=== PATIENT | male | born 1935 | race Caucasian/White ===

== ENCOUNTER 2022-02-24 13:35 | Emergency (ER) | payer MEDICARE, BC, SELFPAY ==
[2022-02-24 13:40] VITALS: BP 187/87; PULSE 74; RESP 24; RESP 30; TEMP 37.1; O2SAT 93; O2SAT 97
--- NOTE | 2022-02-24 13:56 | ED_ITS ---
HPI - General Adult General Time Seen by Provider: 13:56 Date Seen: 02/24/22 Chief complaint: Shortness of Breath/Dyspnea Stated complaint: Struggling to breath Time Seen by Provider: 02/24/22 13:49 Source: patient and RN notes reviewed Mode of arrival: wheelchair Limitations: no limitations History of Present Illness HPI narrative: Patient is an 86-year-old male with known emphysema coming in with complaint of increasing shortness of breath. He baseline is on budesonide and formoterol nebs. He is also on prednisone 10 mg daily as well as a Zithromax 250 mg daily. 2-3 days ago he developed some nasal drainage/postnasal drainage in 30 which is getting a bit of a cold. This seemed to have precipitated his breathing. He just feeling more short of breath. Some cough. No pain. No fevers. Not aware of any ill contacts. He brings up quite quickly that he is depressed, tells me that he lost his to metastatic breast cancer a little over a month ago and then he just lost their dog a few weeks ago. He has been given Ativan to help with sleeping. Baseline he is not on oxygen at home during the daytime but does use it at night. No current tobacco use. Related Data Home Medications Medication Instructions Recorded Confirmed atorvastatin 40 mg tablet 40 mg PO HS 02/24/22 02/24/22 azithromycin 250 mg tablet 250 mg PO DAILY 02/24/22 02/24/22 calcium carbonate 600 mg-vitamin 1 cap PO DAILY 02/24/22 02/24/22 D3 5 mcg (200 unit) capsule (Calcium 600 + D(3)) diltiazem HCl 180 mg 180 mg PO DAILY 02/24/22 02/24/22 capsule,extended release 24 hr (Cardizem CD) formoterol fumarate 20 mcg/2 mL 2 ml inhalation BID 02/24/22 02/24/22 solution for nebulization guaifenesin 1,200 mg tablet, 1,200 mg PO BID 02/24/22 02/24/22 extended release 12 hr (Mucinex) hydralazine 25 mg tablet 25 mg PO BID 02/24/22 02/24/22 isosorbide mononitrate 30 mg 30 mg PO DAILY 02/24/22 02/24/22 tablet,extended release 24 hr lisinopril 2.5 mg tablet 2.5 mg PO DAILY 02/24/22 02/24/22 potassium chloride 10 mEq 10 meq PO DAILY 02/24/22 02/24/22 tablet,extended release (K-Tab) prednisone 10 mg tablet 10 mg PO DAILY 02/24/22 02/24/22 tiotropium bromide 2.5 2 inh inhalation DAILY 02/24/22 02/24/22 mcg/actuation mist for inhalation (Spiriva Respimat) torsemide 10 mg tablet 10 mg PO DAILY 02/24/22 02/24/22 Previous Rx's Medication Instructions Recorded doxycycline monohydrate 100 mg 100 mg PO BID #14 caps 02/24/22 capsule ipratropium 0.5 mg-albuterol 3 mg 3 ml inhalation Q6H PRN #90 mL 02/24/22 (2.5 mg base)/3 mL nebulization soln prednisone 20 mg tablet 20 mg PO BID #10 tabs 02/24/22 Allergies Allergy/AdvReac Type Severity Reaction Status Date / Time No Known Drug Allergies Allergy Verified 02/24/22 13:44 Review of Systems Status of ROS: Reports: 10 or more systems reviewed and unremarkable except as noted in History and below PFSH PFS Social History Smoking Status: Former smoker Do you use any of these nicotine containing products: None Second hand tobacco smoke exposure: No How often do you have a drink containing alcohol: never How often do you have six or more drinks on one occasion: Never AUDIT-C Alcohol total score: 0 Non-prescribed substance use: denies use Exam Const: Vital Signs, click to edit/add: Vital Signs - 24 hr 02/24/22 13:40 02/24/22 13:40 02/24/22 15:00 Temperature 98.8 F Pulse Rate [Pulse Oximeter] 74 73 Respiratory Rate 30 H 24 19 Blood Pressure [Le ft Upper Arm] 187/87 H 187/87 H 166/74 H Pulse Oximetry 93 97 91 Oxygen Delivery Me thod Room Air Nasal Cannula Room Air Oxygen Flow Rate 2 02/24/22 14:00 02/24/22 14:30 02/24/22 15:30 Temperature Pulse Rate [Pulse Oximeter] 70 73 75 Respiratory Rate 18 19 Blood Pressure [Le ft Upper Arm] 173/82 H 163/80 H 172/78 H Pulse Oximetry 99 95 92 Oxygen Delivery Me thod Nasal Cannula Room Air Room Air Oxygen Flow Rate 2 Documenting provider has reviewed patient's vital signs: yes Common normals: average body habitus, oriented x3, no limitations and alert General appearance: cooperative, in distress mild and frail appearing HENMT: Common normals: normocephalic, head/scalp atraumatic, hearing grossly normal bilaterally, external ears normal, external nose normal, nasal mucous membranes and turbinates normal, moist oral mucous membranes and oropharynx normal Head and scalp: normocephalic and atraumatic Nose: external nose normal and nasal mucous membranes and turbinates normal External ear: external ears normal Eye: Common normals: PERRL, EOMs intact bilaterally, conjunctivae normal and no scleral icterus Conjunctiva: conjunctiva(e) normal Pupil: PERRL Neck & C-Spine: Common normals: full ROM, no lymphadenopathy, supple, no meningeal signs and thyroid normal Thyroid: thyroid normal Resp: Effort & inspection: tachypneic, pursed lip breathing, audible wheezes (On his right, minimal breath sounds heard on the left) and prolonged expiratory phase Auscultation: wheezes and diminished lung sounds Other: Can speak in short phrases before needing to pause Cardio: Common normals: regular rate, regular rhythm, S1 normal heart sound, S2 normal heart sound, no gallops, no clicks and no murmurs Rate: regular rate Rhythm: regular rhythm Heart sounds: S1 normal and S2 normal GI: Common normals: Normal to inspection, nondistended, normoactive bowel sounds present, soft to palpation, non-tender, no hepatosplenomegaly and no masses Palpation: soft and no hepatosplenomegaly Extremity: Common normals: normal to inspection, full ROM, normal capillary refill, no joint enlargement, no clubbing, cyanosis or edema, no calf tenderness and no pedal edema Neuro: Common normals: oriented x3 Sensorium/orientation: alert Meningeal signs: no meningeal signs Psych: Other: Becomes tearful at times talking about his in his dog. Course Course Hospital Course: Will have him on pulse oximetry, cardiac monitoring. We will do appropriate l abs including cardiac labs. Will obtain portable chest x-ray. Will going to give him a DuoNeb and I will reassess after that see if it has helped his breathing at all. At this time would appear that this is a COPD/emphysema exacerbation. Need to illicit if there is any infectious etiology including COVID. Will rule out underlying cardiac contributing factors or altered and cardiac etiologies. However, this most likely represents emphysema/COPD exacerbation. I am going to give him a dose of Solu-Medrol IV as well. Reevaluation(s) Reevaluation #1: Reviewed with patient that his chest x-ray is certainly looking stable, no evidence of any concerning acute pneumonia. He is able to relate to me that he actually had prednisone taper that was initiated about 2 weeks ago. He is on 10 mg of that from the prednisone. I have also come to understand that he was taking a Zithromax in daily that last week but maintenance lara he is on it every other day. He noticed his sputum is starting to color more and coughing up more sputum. He has no rescue inhaler at home. He uses the formoterol and the budesonide twice a day. He also uses Spiriva in the morning. We have discussed initiating some DuoNebs that he can use every 6 hours if needed. Will also place him on a course of doxycycline. We did discuss talking to the hospitalists about coming in for observation but he does not want to do that. He is preferring to go home. He does have a followup with the primary provider next week. He does need to keep that to discuss his COPD as well as his grief. Time: 15:58 Vital Signs Vital signs: Initial Vital Signs Temperature 98.8 F 02/24/22 13:40 Temperature Source Temporal Artery Scan 02/24/22 13:40 Pulse Rate 74 02/24/22 13:40 Respiratory Rate 30 H 02/24/22 13:40 Blood Pressure 187/87 H 02/24/22 13:40 Blood Pressure Mean 120 02/24/22 13:40 Blood Pressure Position Sitting 02/24/22 13:40 Pulse Oximetry 93 02/24/22 13:40 Oxygen Delivery Method 02/24/22 13:40 Oxygen Flow Rate 2 02/24/22 13:40 Vital Signs Temperature 98.8 F 02/24/22 13:40 Pulse Rate 74 02/24/22 13:40 Respiratory Rate 30 H 02/24/22 13:40 Blood Pressure 187/87 H 02/24/22 13:40 Pulse Oximetry 93 02/24/22 13:40 Oxygen Delivery Method 02/24/22 13:40 Oxygen Flow Rate 2 02/24/22 13:40 Temperature 98.8 F 02/24/22 13:40 Pulse Rate 75 02/24/22 15:30 Respiratory Rate 19 02/24/22 15:30 Blood Pressure 172/78 H 02/24/22 15:30 Pulse Oximetry 92 02/24/22 15:30 Oxygen Delivery Method 02/24/22 15:30 Oxygen Flow Rate 2 02/24/22 14:00 Medical Decision Making Lab Data Lab results reviewed: Yes I reviewed the patient's lab results Labs: Lab Results 02/24/22 02/24/22 02/24/22 Range/Units 14:02 14:17 14:17 WBC 13.33 H (4.50-11.00) K/uL RBC 4.77 (4.30-5.90) m/uL Hgb 14.5 (13.5-17.5) gm/dL Hct 44.9 (37.0-53.0) % MCV 94 (80-100) fL MCH 30 (26-34) pg MCHC 32 (32-36) gm/dL RDW Coeff of Eliot 13.4 (11.5-15.5) % Plt Count 186 (140-440) K/uL Neut % (Auto) 87.4 H (42.0-72.0) % Lymph % (Auto) 6.9 L (20-44) % Roane % (Auto) 4.6 (0.0-11.0) % Eos % (Auto) 0.2 (0.0-7.0) % Baso % (Auto) 0.1 (0.0-3.0) % Neut # (Auto) 11.70 H (1.7-7.0) K/uL Lymph # (Auto) 0.90 (0.90-2.90) K/uL Roane # (Auto) 0.60 (0.00-0.90) K/UL Eos # (Auto) 0.00 (0.00-0.50) K/uL Baso # (Auto) 0.00 (0.00-0.30) K/uL Abs Immat Gran (auto) 0.11 (0.00-0.30) K/uL VBG pH (7.32-7.43) VBG pCO2 (40-50) mmHG VBG pO2 (25-47) mmHG VBG HCO3 (21-28) mmol/L Sodium 137 (135-149) mmol/L Potassium 4.7 (3.6-5.1) mmol/L Chloride 101 (96-114) mmol/L Carbon Dioxide 29 (20-32) mmol/L BUN 28 (7-30) mg/dL Creatinine 1.5 (0.5-1.5) mg/dL Estimated GFR 45 ml/min Glucose 105 (60-115) mg/dL Lactate (0.5-1.9) mmol/L Calcium 9.2 (8.4-10.6) mg/dL Total Bilirubin 0.9 (0.1-1.5) mg/dL AST 18 (12-35) U/L ALT 12 (4-50) U/L Alkaline Phosphatase 87 (40-150) U/L Troponin I < 0.01 L (0.01-0.04) ng/mL C-Reactive Protein 1.2 H (0.5-1.0) mg/dL NT-Pro-B Natriuret Pep 264 (0-450) PG/mL Total Protein 6.3 (6.0-8.3) g/dL Albumin 3.9 (3.3-5.0) g/dL SARS-CoV-2 (PCR) Negative SARS-CoV-2 (Negative) 02/24/22 Range/Units 14:17 WBC (4.50-11.00) K/uL RBC (4.30-5.90) m/uL Hgb (13.5-17.5) gm/dL Hct (37.0-53.0) % MCV (80-100) fL MCH (26-34) pg MCHC (32-36) gm/dL RDW Coeff of Eliot (11.5-15.5) % Plt Count (140-440) K/uL Neut % (Auto) (42.0-72.0) % Lymph % (Auto) (20-44) % Roane % (Auto) (0.0-11.0) % Eos % (Auto) (0.0-7.0) % Baso % (Auto) (0.0-3.0) % Neut # (Auto) (1.7-7.0) K/uL Lymph # (Auto) (0.90-2.90) K/uL Roane # (Auto) (0.00-0.90) K/UL Eos # (Auto) (0.00-0.50) K/uL Baso # (Auto) (0.00-0.30) K/uL Abs Immat Gran (auto) (0.00-0.30) K/uL VBG pH 7.401 (7.32-7.43) VBG pCO2 49 (40-50) mmHG VBG pO2 48.1 H (25-47) mmHG VBG HCO3 30 H (21-28) mmol/L Sodium (135-149) mmol/L Potassium (3.6-5.1) mmol/L Chloride (96-114) mmol/L Carbon Dioxide (20-32) mmol/L BUN (7-30) mg/dL Creatinine (0.5-1.5) mg/dL Estimated GFR ml/min Glucose (60-115) mg/dL Lactate 1.4 (0.5-1.9) mmol/L Calcium (8.4-10.6) mg/dL Total Bilirubin (0.1-1.5) mg/dL AST (12-35) U/L ALT (4-50) U/L Alkaline Phosphatase (40-150) U/L Troponin I (0.01-0.04) ng/mL C-Reactive Protein (0.5-1.0) mg/dL NT-Pro-B Natriuret Pep (0-450) PG/mL Total Protein (6.0-8.3) g/dL Albumin (3.3-5.0) g/dL SARS-CoV-2 (PCR) (Negative) Imaging Data Chest x-ray: Attestation: I have reviewed the pertinent imaging results. Radiologist's impression: Patient: DANII GUEVARA JR Facility:?[facility] Patient ID:?[id number] Site Patient ID:?[id number] Site :?[id number] Study:?XRay Chest PORTABLE-02/24/2022 2:24:11 PM Ordering Physician:Joselyn Hurst Final Report: Indication: Shortness of breath Comparison: Two-view chest November 15, 2013 Technique: Single AP view chest Findings: There is hyperinflation and chronic interstitial change. There is mild interstitial prominence with minimal pulmonary vascular congestion and basilar atelectasis versus scar. There is no pneumothorax. The cardiomediastinal silhouette is within normal limits. The bony thorax is grossly intact. Impression: Hyperinflation and chronic interstitial changes with minimal basilar atelectasis and parenchymal scar. Dictated by Chaka Umanzor MD @ 02/24/2022 2:36:18 PM (Electronic Signature) ECG Data Attestation: I personally reviewed and interpreted this ECG as follows: (Sinus rhythm, 71 beats per minute, no acute pathology.) Prior ECG tracings: not available for review Critical Care Time Critical Care Time Critical Care Time: No Discharge Plan Discharge Clinical Impression: Grief reaction, Acute exacerbation of chronic obstructive pulmonary disease Patient Disposition: Home, Self-Care Condition: Stable Instructions: Grief and Loss (ED), COPD (Chronic Obstructive Pulmonary Disease) (ED) Additional Instructions: Start doxycycline 4 year COPD exacerbation. Hold your is at her mycin while you are on this. Once done with the doxycycline you can resume the Zithromax sin every other day that you about on. And putting on prednisone 20 mg twice a day, need to have further taper done by your primary care provider at followup next week. I have also written for DuoNebs to be used up to every 6 hours as needed, this is a medicine that can be used as needed. You should stay on the formoterol, Spiriva, budesonide. If you are continuing to worsen, develops fever, have increased difficulty breathing, do need to seek re-evaluation. Activity Level: Activity as Tolerated Prescriptions: New prednisone 20 mg tablet 20 mg PO BID Qty: 10 0RF doxycycline monohydrate 100 mg capsule 100 mg PO BID Qty: 14 0RF ipratropium-albuterol 0.5 mg-3 mg(2.5 mg base)/3 mL solution for nebulization 3 ml inhalation Q6H PRNQty: 90 0RF No Action diltiazem HCl [Cardizem CD] 180 mg capsule,extended release 24hr 180 mg PO DAILY isosorbide mononitrate 30 mg tablet extended release 24 hr 30 mg PO DAILY lisinopril 2.5 mg tablet 2.5 mg PO DAILY potassium chloride [K-Tab] 10 mEq tablet extended release 10 meq PO DAILY torsemide 10 mg tablet 10 mg PO DAILY azithromycin 250 mg tablet 250 mg PO DAILY Rx Instructions: start on day 2 of therapy atorvastatin 40 mg tablet 40 mg PO HS Mucinex 1,200 mg tablet extended release 12hr 1,200 mg PO BID Calcium 600 + D(3) 600 mg-5 mcg (200 unit) capsule 1 cap PO DAILY hydralazine 25 mg tablet 25 mg PO BID Spiriva Respimat 2.5 mcg/actuation mist 2 inh inhalation DAILY prednisone 10 mg tablet 10 mg PO DAILY formoterol fumarate 20 mcg/2 mL solution for nebulization 2 ml inhalation BID Follow Up/Referrals: Juan Argueta MD [Primary Care Provider] - Stand Alone [facility]
[2022-02-24 14:00] VITALS: BP 173/82; PULSE 70; O2SAT 99
[2022-02-24] MEDS: IPRAT-ALBUT 0.5-2.5 MG/3 ML NEB 1 NEB IH (14:00)
--- NOTE | 2022-02-24 14:00 | CRLHL7_ITS ---
For Patients: As a result of the Century Cures Act, medical imaging exams and procedure reports are released immediately into your electronic medical record. You may view this report before your referring provider. If you have questions, please contact your health care provider. Indication: Shortness of breath Comparison: Two-view chest November 15, 2013 Technique: Single AP view chest Findings: There is hyperinflation and chronic interstitial change. There is mild interstitial prominence with minimal pulmonary vascular congestion and basilar atelectasis versus scar. There is no pneumothorax. The cardiomediastinal silhouette is within normal limits. The bony thorax is grossly intact. Impression: Hyperinflation and chronic interstitial changes with minimal basilar atelectasis and parenchymal scar. Dictated by Chaka Umanzor MD @ 02/24/2022 2:36:18 PM (Electronically Signed)
--- NOTE | 2022-02-24 14:10 | ED.NURSE ---
Pt weaned off O2 after neb. Pt satting in mid-90's% on RA. notified.
[2022-02-24 14:30] VITALS: BP 163/80; PULSE 73; RESP 18; O2SAT 95
[2022-02-24] MEDS: METHYLPREDNISOLONE SOD SUCC 62.5 MG/ML (125) 125 MG IVP (14:33)
[2022-02-24 14:37] LABS: HCO3 VBG 30 mmol/L (21-28); Lactate* 1.4 mmol/L (0.5-1.9); PCO2 VBG 49 mmHG (40-50); PO2 VBG 48.1 mmHG (25-47); pH VBG 7.401 (7.32-7.43)
[2022-02-24 14:38] LABS: Hematocrit 44.9 % (37.0-53.0); Hemoglobin* 14.5 gm/dL (13.5-17.5); Lymphocytes Percent Auto 6.9 % (20-44); Mean Corpuscular HGB Conc 32 gm/dL (32-36); Mean Corpuscular Hemoglobin 30 pg (26-34); Mean Corpuscular Volume 94 fL (80-100); Neutrophils Percent Auto 87.4 % (42.0-72.0); Platelet Count* 186 K/uL (140-440); RDW Coefficient of Variation % 13.4 % (11.5-15.5); Red Blood Count 4.77 m/uL (4.30-5.90); White Blood Count* 13.33 K/uL (4.50-11.00)
[2022-02-24 14:39] LABS: Basophils Percent Auto 0.1 % (0.0-3.0); Eosinophils Percent Auto 0.2 % (0.0-7.0); Immature Granulocytes Abs Auto 0.11 K/uL (0.00-0.30); Monocytes Percent Auto 4.6 % (0.0-11.0)
[2022-02-24 14:48] LABS: Slide Review Reflex No
[2022-02-24 14:54] LABS: Chloride* 101 mmol/L (96-114)
[2022-02-24 14:55] LABS: Albumin* 3.9 g/dL (3.3-5.0); Potassium* 4.7 mmol/L (3.6-5.1); Sodium* 137 mmol/L (135-149)
[2022-02-24 14:57] LABS: Creatinine* 1.5 mg/dL (0.5-1.5); Estimated Glomerular Filt Rate 45 ml/min
[2022-02-24 14:58] LABS: Alanine Aminotransferase* 12 U/L (4-50); Alkaline Phosphatase* 87 U/L (40-150); Aspartate Amino Transferase* 18 U/L (12-35); Bilirubin Total* 0.9 mg/dL (0.1-1.5); Blood Urea Nitrogen* 28 mg/dL (7-30); Carbon Dioxide* 29 mmol/L (20-32); Total Protein* 6.3 g/dL (6.0-8.3)
[2022-02-24 14:59] LABS: Calcium* 9.2 mg/dL (8.4-10.6); Glucose* 105 mg/dL (60-115)
[2022-02-24 15:00] VITALS: BP 166/74; PULSE 73; RESP 19; O2SAT 91
[2022-02-24 15:01] LABS: C Reactive Protein* 1.2 mg/dL (0.5-1.0)
[2022-02-24 15:07] LABS: NT Pro B Type NatriureticPept* 264 PG/mL (0-450)
[2022-02-24 15:09] LABS: SARS PCR* Negative SARS-CoV-2 (Negative)
[2022-02-24 15:15] LABS: Troponin I* < 0.01 ng/mL (0.01-0.04)
[2022-02-24 15:30] VITALS: BP 172/78; PULSE 75; RESP 19; O2SAT 92
[2022-02-24 16:00] VITALS: BP 176/80; PULSE 72; RESP 20; O2SAT 94
== END 2022-02-24 16:29 | disposition home or self-care (01) ==
PROVIDERS: Emergency Provider Family Medicine; PCP Family Medicine
DX: J44.1 Chronic obstructive pulmonary disease with (acute) exacerbation (principal); F43.20 Adjustment disorder, unspecified
CPT/HCPCS: 36415; 71045; 80053; 82803; 83605; 83880; 84484; 85025; 86140; 87635; 93005; 94640; 96374; 99284; 99285; J2930

== ENCOUNTER 2022-03-01 14:55 | Outpatient (CLI) | payer MEDICARE, BC, SELFPAY | END 2022-03-01 14:56 | disposition home or self-care (01) | LOC: AMB 03-06 14:09 | PROVIDERS: PCP Family Medicine; Visit Provider Emergency Medicine Emergency Medical Services | DX: T42.4X2A Poisoning by benzodiazepines, intentional self-harm, initial encounter (principal); T40.2X2A Poisoning by other opioids, intentional self-harm, initial encounter; Y92.003 Bedroom of unspecified non-institutional (private) residence as the place of occurrence of the external cause | CPT/HCPCS: A0425; A0427 ==